=== PATIENT | male | born 2000 | race Caucasian/White ===

== ENCOUNTER 2025-03-18 06:54 | Emergency (ER) | payer OTHER, SELFPAY ==
[2025-03-18 06:55] VITALS: BP 147/82; PULSE 88; RESP 17; TEMP 36.6; O2SAT 100; BMI 25.0
--- NOTE | 2025-03-18 07:04 | RAD_ITS ---
PROCEDURE: CHEST PA AND LATERAL 03/18/2025 REASON FOR EXAM: CHEST PAIN TECHNIQUE: Procedure Code: RADCXR Modality: DX Procedure: CHEST PA AND LATERAL COMPARISON: None FINDINGS: Hardware: EKG leads Heart: Normal Mediastinum: Normal Lungs: The lungs are clear. Bones: Minimal curvature thoracolumbar spine centered at T11 directed to the left. This may be positional or related to spasm. RAD/Chest PA and Lateral IMPRESSION: No acute cardiopulmonary process Reading Location: [id number]
--- NOTE | 2025-03-18 07:04 | EKG12_ITS ---
Test Reason : CP Blood Pressure : */* mmHG Vent. Rate : 86 BPM Atrial Rate : 86 BPM P-R Int : 162 ms QRS Dur : 94 ms QT Int : 336 ms P-R-T Axes : 59 91 40 degrees QTcB Int : 402 ms Normal sinus rhythm otherwise normal, st elevation Confirmed by Hernandez Becerril ([id number]), editor at large JULIO BARRAGAN ([id number]) on 03/20/2025 8:37:13 AM Referred By: Confirmed By: Hernandez Becerril
--- NOTE | 2025-03-18 07:15 | ED.VIS.CHEST ---
HPI History of Present Illness Chief Complaint: Chest Pain Narrative Narrative: Chief complaint and HPI: 25-year-old male with past medical history of intermittent vaping and marijuana use presents for evaluation of right-sided chest pain. Onset 2 days ago. States prior to this he had been working out however denies any strenuous physical activity for the past week. Pain is worse with movement and inspiration. Certain positions help the pain disappear. He denies any fever, chills, shortness of breath, abdominal pain, nausea, vomiting, URI symptoms, rash. Patient states he recently traveled out of state. Review of systems: See HPI Medications: As listed on the chart Allergies: As listed on the chart PFSH: Per chart Vital signs: As listed on the chart. Reviewed. Physical exam: Gen: A&O x3, NAD Head: Normocephalic, atraumatic Eyes: No sclera icterus, conjunctiva clear ENT: Moist mucous membranes Neck: Trachea midline, No JVD CV: RRR, no murmurs, no peripheral edema, chest pain nonreproducible with palpation Resp: Lungs CTA BL, no w/r/c GI: Abd soft, non-distended, non-tender, no r/r/g Musc: Full ROM, no deformity Skin: Warm, dry, without rash Psych: Cooperative, appropriate mood and affect [facility] Medical History (Updated 03/18/25 @ 06:56 by Susanna Ruiz) ADD (attention deficit disorder) Home Medications ?Medication ?Instructions ?Recorded ?Last Taken ?Type NK 03/18/25 Unknown History Allergy/AdvReac Type Severity Reaction Status Date / Time peanut (peanuts) Allergy Anaphylaxis Verified 03/18/25 06:58 Social History Smoking Status: Light Smoker (<10/day) EXAM Physical Exam Const Vital Signs: 03/18/25 06:55 03/18/25 06:55 03/18/25 07:56 Temperature 97.9 F Temperature Source Oral Pulse Rate 88 92 Respiratory Rate 17 14 Respiratory Effort Normal Non-Labored Blood Pressure 147/82 H 113/59 L Blood Pressure Mean 103 77 Pulse Ox 100 100 Oxygen Delivery Method Room Air Room Air 03/18/25 09:04 Temperature Temperature Source Pulse Rate 78 Respiratory Rate 16 Respiratory Effort Blood Pressure 118/76 Blood Pressure Mean 90 Pulse Ox 100 Oxygen Delivery Method Room Air MDM MDM MDM Narrative Medical decision making narrative: 25-year-old male with past medical history of intermittent vaping and marijuana use presents for evaluation of right-sided chest pain. Onset 2 days ago. Pain is worse with movement and inspiration. Certain positions help the pain disappear. On presentation, patient no acute distress. Mildly hypertensive. Differential diagnosis includes but is not limited to myofascial spasm, costochondritis, pleurisy, arrhythmia, PE, pneumothorax, pneumonia, ACS. Aspirin ordered. Chest pain workup ordered. CBC with leukocytosis of 14.7. No anemia. Platelets unremarkable. D-dimer elevated at 0.58. Cannot rule out PE, CTA chest ordered. BMP relatively unremarkable. Troponin unremarkable x 2. CT chest shows tiny right pleural effusion with right basilar atelectasis and/or early infiltrate. No evidence of PE. Patient's pain is likely secondary to his small right pleural effusion. May be early pneumonia versus early viral illness. Patient and family was updated of all the results. Patient given the option of antibiotics versus observation. He elected for antibiotics. Will treat for possible early pneumonia. Follow-up with primary care physician. Return back to ED symptoms change or worsen. He confirmed understanding. Tylenol Motrin as needed for pain. EKG: Interpreted by me/EM physician: EKG shows normal sinus rhythm with early repolarization. Heart rate 86. Diagnostic: Interpreted by me/EM physician: Chest x-ray without pneumonia, effusion, cardiomegaly, pneumothorax. Radiology in agreement. Per radiology there is minimal curvature of the thoracolumbar spine created at T11 directed to the left. This may be positional related to spasm. Impression: 1. Right small pleural effusion 2. Possible early pneumonia 3. Right-sided chest pain Lab Data Labs: Laboratory Results - last 24 hr 03/18/25 03/18/25 07:12 09:07 WBC 14.7 H RBC 5.53 Hgb 16.2 Hct 48.9 MCV 88.4 MCH 29.3 MCHC 33.1 RDW Std Deviation 41.6 RDW Coeff of Antonette 12.8 Plt Count 261 MPV 9.9 Immature Gran % (Auto) 0.500 Neut % (Auto) 67.8 Lymph % (Auto) 13.7 L [place] % (Auto) 7.5 Eos % (Auto) 9.3 H Baso % (Auto) 1.2 H Absolute Neuts (auto) 10.0 H Absolute Lymphs (auto) 2.02 Nucleated RBC % 0 D-Dimer Quant (PE/DVT) 0.58 H* Sodium 139 Potassium 4.1 Chloride 103 Carbon Dioxide 26.2 Anion Gap 10 BUN 9 Creatinine 1.20 Estim Creat Clear Calc 94.10 Est GFR (MDRD) Non-Af 86 BUN/Creatinine Ratio 7.5 L Glucose 104 H Calcium 9.0 Troponin T High Sens 12 Troponin T Hi Sens 2 Hr 9 Radiography Diagnostic Testing: Clinical Impression(s) from Imaging Studies Chest X-Ray 03/18/25 07:04 IMPRESSION: No acute cardiopulmonary process Reading Location: [facility] Chest CTA 03/18/25 07:32 IMPRESSION: Tiny right pleural effusion with the right basilar atelectasis and/or early infiltrate. No evidence of pulmonary embolism. [facility] T[facility] Chief Complaint: Chest Pain ED Provider: Genaro Hale Dx/Rx/DC Orders Prescriptions: No Action NK Primary Care Provider: Care Physician,No Primary Referrals: Care Physician,No Primary [Primary Care Provider, Medical] Print Language: [place] Citizen
[2025-03-18 07:18] LABS: Hematocrit 48.9 % (40-54); Hemoglobin 16.2 g/dL (13.0-16.5); Immature Granulocytes Count 0.070 X10^3/uL (0.0-0.0); Mean Corp Hgb Conc 33.1 g/dL (32-36); Mean Corpuscular Volume 88.4 fL (80-94); Mean Platelet Vol. 9.9 fl (6.2-12.0); NRBC Flagged by Analyzer 0 % (0-5); Platelet Count 261 K/mm3 (150-450); RBC Distribution Width CV 12.8 % (11.6-14.6); RBC Distribution Width SD 41.6 fl (35.1-43.9); Red Blood Count 5.53 M/mm3 (4.6-6.2); White Blood Count 14.7 K/mm3 (4.4-11.0)
--- OUTSIDE RECORDS SUMMARY | 2025-03-18 07:26 | XMS RPT_ITS | CCD ---
Author Organization [facility] Care Team Providers Care Group Art Supervisor Name Role Phone Bunny Angel Unavailable Unavailable DARYA CURRY Unavailable Unavailable DARYA CURRY Unavailable Unavailable Darya Curry Unavailable Unavailable Darya Curry Unavailable Unavailable CHARANJIT KELLER Attending Unavailable Allergies Allergy Classification Reported Allergen(s) Allergy Type Date of Onset Reaction(s) Facility (2 sources) bee pollen Allergy to substance (finding) [facility] Work Phone: (2 sources) peanut Allergy to substance (finding) [facility] Work Phone: Medications Completed/Discontinued Medications Medication Drug Class(es) Dates Sig (Normalized) Sig (Original) 24 hr dexmethylphenidate hydrochloride 15 mg extended release oral capsule (2 sources) Central Nervous System Stimulant Start: 9 take 1 capsule by mouth once daily Dexmethylphenidate HCl ER 15 MG Oral Capsule Extended Release 24 Hour TAKE 1 CAPSULE Daily Quantity: 90 Refills: 0 Patricio ALMAZAN, PhD, Darya Start : 10-Jan-2019 Active [id number] 0.3 ml EPINEPHrine 1 mg/ml auto-injector (4 sources) alpha-Adrenergic Agonist, beta-Adrenergic Agonist, Catecholamine Start: 8 Auvi-Q 0.3 MG/0.3ML Injection Solution Auto-injector Inject with Auvi-Q autoinjector for signs of severe allergic reaction. Repeat with second injectio if no improvement within 10 min of first. Quantity: 1 Refills: 2 Patricio ALMAZAN, PhD, Darya Start : 28-Apr-2017 Active 2 Solution Auto-injector Pen Start: 04-23-2015 EpiPen 2-Dago 0 .3 MG/0.3ML Injection Solution Auto-injector Inject with autoinjector syringe for severe allergic reaction. May repeat with second syringe if no improvement after first injection. Quantity: 2 Refills: 1 Patricio ALMAZAN, , Darya Start : 23-Apr-2015 Active 2 Solution Auto-injector Pen 24 hr guanFACINE 1 mg extended release oral tablet (2 sources) Central alpha-2 Adrenergic Agonist Start: 06-14-2019 take 1 tablet by mouth twice daily guanFACINE HCl ER 1 MG Oral Tablet Extended Release 24 Hour Take 1 tablet twice daily Quantity: 180 Refills: 1 Patricio ALMAZAN PhD, Darya Start : 14-Jun-2019 Active hydrOXYzine hydrochloride 25 mg oral tablet (2 sources) Antihistamine Start: 07-25-2019 take 1 tablet by mouth every six hours hydrOXYzine HCl - 25 MG Oral Tablet TAKE 1 TABLET Every 6 hours PRN as needed for anxiety. Quantity: 35 Refills: 5 Patricio ALMAZAN PhD, Darya Start : 25-Jul-2019 Active Start: 07-25-2019 take 1 tablet by becca th every six hours hydrOXYzine HCl - 25 MG Oral Tablet TAKE 1 TABLET Every 6 hours PRN as needed for anxiety. 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 disorder)] Chronic Cardiac dysrhythmias (2 sources) Palpitations; Translations: [Palpitations] Onset: 04-13-2022 Episodic Liveborn (2 sources) Term infant; Translations: [History of Full-term ] Episodic Other acquired deformities (2 sources) Deformity of chest wall; 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 Other congenital anomalies (2 sources) Pectus carinatum; Translations: [Pectus carinatum] Chronic Other injuries and conditions due to external causes (2 sources) Injury of wrist; Translations: [History of Wrist fracture, left] Episodic Other lower respiratory disease (2 sources) Cough; Translations: [History of Cough] Episodic Superficial injury; contusion (1 source) Contusion of left upper arm, initial encounter; Translations: [Contusion of left upper arm, initial encounter] Onset: 01-03-2018 Episodic Unclassified (1 source) Unknown / UNK(Unknown) Onset: 01-03-2018 Past or Other Problems Problem Classification Problem Date Documented Da te Episodic/Chronic Unclassified (1 source) Contusion of left upper arm, initial encounter Onset: 01-03-2018 Unclassified (2 sources) Patient encounter status; Translations: [Encounter for routine child health examination] NEGATED: Highlighted row has not occurred!Residual codes; unclassified (15 sources) Disease Episodic Results Test Name Value Interpretation Reference Range Facility ECG 12-LEADon 04-14-2022 ECG 12-LEAD IMPRESSION: Sinus rhythm Borderline right axis deviation Electronically Signed On 04-14-2022 8:13:39 EST by Alanna Nelson [facility] ED Nursing Noteon 04-13-2022 ED Nursing Note Pt is aware of palpitations he's had in the past. Came in today when he noticed them again. Said he did have an energy drink at 1700 to day, smoked some weed and cigarette(s). The chest pain was sternal and only for a brief time. No CP now. No SOB. [facility] ED Nursing Note Bed: 40 Expected date: Expected time: Means of arrival: Comments: Triage: Palpitations Tona Cagle RN 04/13/22 0425 [facility] ED Provider Noteon 2 ED Provider Note [facility] EMERGENCY DEPT EMERGENCY DEPARTMENT ENCOUNTER Pt Name: Madi Wan Birthdate 2000 Date of evaluation: 04/13/2022 Provider: Nadine Lee MD CHIEF COMPLAINT Chief Complaint Patient presents with Palpitations Pt stated he has palpitations that started around 11pm. Pt admits to drinking energy drink, smoking marijuana, and smoking nicotine tonight. Pt stated he has experienced this before but not this bad. Chest Pain Pt stated he is having chest discomfort. HISTORY OF PRESENT ILLNESS (Location/Symptom, Timing/Onset, Context/Setting, Quality, Duration, Modifying Factors, Severity) Note limiting factors. HPI Madi Wan is a 22 y.o. male who presents to the emergency department for palpitations. Patient states that his palpitations began at approximately 12:30 AM. He states that he smoked marijuana around 1700 on 04/12/2022. At approximately 2300 on 04/12/2022, patient states that he smokes marijuana and had a small glass of wine. Endorses discomfort and shortness of breath associated with the palpitations, but denies any chest pain, lightheadedness, nausea/vomiting. Denies any other alcohol or drug use. Patient states that this has been occurring ever since he had COVID approximately a year and a half ago where he notices it more when he drinks energy drinks. Denies any history of cardiac disease or family history of cardiac disease. Denies any recent immobilization, recent travel, or blood clots. Patient states that he does have a history of anxiety and has been anxious lately, but he came in tonight because these palpitations were more persistent than his baseline. Nursing Notes were reviewed. REVIEW OF SYSTEMS (2+ for level 4; 10+ for level 5) Review of Systems Constitutional: Negative for chills and fever. HENT: Negative for congestion and sore throat. Eyes: Negative for pain and visual disturbance. Respiratory: Negative for cough, chest tightness and shortness of breath. Cardiovascular: Positive for palpitations. Negative for chest pain. Gastrointestinal: Negative for abdominal pain and vomiting. Genitourinary: Positive for dysuria. Musculoskeletal: Negative for arthralgias and back pain. Skin: Negative for color change and rash. Neurological: Negative for dizziness, seizures, syncope and light-headedness. Psychiatric/Behavioral: Negative for agitation. The patient is nervous/anxious. All other systems reviewed and are negative. PAST MEDICAL HISTORY History reviewed. No pertinent past medical history. SURGICAL HISTORY History reviewed. No pertinent surgical history. CURRENT MEDICATIONS Previous Medications No medications on file ALLERGIES Patient has no known allergies. FAMILY HISTORY No family history on file. SOCIAL HISTORY Social History Socioeconomic History Marital status: Single SCREENINGS PHYSICAL EXAM (up to 7 for level 4, 8 or more for level 5) Physical Exam Vitals and nursing note reviewed. Constitutional: General: He is not in acute distress. Appearance: He is well-developed. HENT: Head: Normocephalic and atraumatic. Eyes: Conjunctiva/sclera: Conjunctivae normal. Cardiovascular: Rate and Rhythm: Regular rhythm. Tachycardia present. Heart sounds: No murmur heard. Pulmonary: Effort: Pulmonary effort is normal. No respiratory distress. Breath sounds: Normal breath sounds. Abdominal: Palpations: Abdomen is soft. Tenderness: There is no abdominal tenderness. Musculoskeletal: General: No swelling. Cervical back: Neck supple. Right lower leg: No edema. Left lower leg: No edema. Skin: General: Skin is warm and dry. Capillary Refill: Capillary refill takes less than 2 seconds. Neurological: Mental Status: He is alert. Psychiatric: Attention and Perception: Attention and perception normal. Mood and Affect: Affect normal. Mood is anxious. Speech: Speech normal. Behavior: Behavior normal. Behavior is cooperative. Thought Content: Thought content normal. Cognition and Memory: Cognition and memory normal. Judgment: Judgment normal. DIAGNOSTIC RESULTS EKG (Per Emergency Physician): Please see epiphany interpretation if EKG performed RADIOLOGY (Per Emergency Physician): ECG 12 lead Result Date: 04/13/2022 Sinus rhythm Borderline right axis deviation ED BEDSIDE ULTRASOUND: Performed by ED Physician - none LABS: Labs Reviewed COMPREHENSIVE METABOLIC PANEL - Abnormal Result Value SODIUM 141 POTASSIUM 3.6 CHLORIDE 107 CARBON DIOXIDE 26 ANION GAP 8 UREA NITROGEN 9 CREATININE 0.96 GLUCOSE 109 (*) CALCIUM 10.2 AST (SGOT) 33 ALT 26 ALKALINE PHOSPHATASE 84 ALBUMIN 5.1 (*) BILIRUBIN, TOTAL 0.6 TOTAL PROTEIN 8.0 eGFR >90.0 D-DIMER,QUANTITATIVE - Normal D-DIMER, INNOVANCE <0.19 Narrative: Innovance D-Dimer values of <0.50 mg/L FEU can be used in combination with a pre-test probability model (e.g. Well's) to exclude pulmonary embol (more content not included)... Normal [facility] ED Provider Note Emergency Department Encounter [facility] EMERGENCY DEPT Patient: Madi Wan : 2000 Date of Evaluation: 04/13/2022 ED Supervising Physician: Charanjit Keller DO I independently examined and evaluated Madi Wan. This will serve as my Supervisory note as the clinical neuropsychologist of record and shared attestation. I did perform a substantive portion of the visit including all aspects of the Medical Decision Making. I wore appropriate PPE for the entirety of this encounter. In brief, Madi Wan is a 22 y.o. male that presents to the emergency departmentfor palpitations. Patient reports palpitations began at 11 PM. Reports that he had smoked marijuana and drank a Monster and a Mountain Dew prior to palpitations beginning. Patient states that with the palpitations he felt discomfort, however denies chest pain. Patient denies shortness of breath, lightheadedness, nausea/vomiting. Denies any other drug or alcohol use. Patient reports that this has been occurring intermittently over the past 2 years when he drinks energy drinks. Patient denies family history of cardiac disease. Patient denies tobacco use. Denies lower extremity swelling, recent travel, or history of blood clots. Patient reports that he feels very anxious lately. Focused exam: Gen: NAD HEENT: Head atraumatic. Eyes no discharge, nonicteric and non injected Neck: supple Heart: Tachycardic, regular rhythm, no murmur Lungs: CTA Abd: soft, non distended and no tenderness to palpation Extremities: 2+ radial and DP. Cap refill normal. No edema. Full range of motion of all 4 extremities Neuro: A&Ox3. Strength 5/5 in bilateral UE and LE bilaterally. Sensation to light touch intact in bilateral UE and LE. Skin: no rash or lesions to exposed skin Psych: Anxious affect Brief ED course/MDM: 22 y.o. male that presents to the emergency departmentfor palpitations. Upon arrival to the ED, patient tachycardic in 110s, but otherwise hemodynamically stable, afebrile, and saturating well on room air. Patient with anxious affect. EKG with normal sinus rhythm with right axis deviation present and mild ST depression in lead III and aVF. No priors for comparison. Patient denies sudden cardiac history in the family. Patient denies any risk factors for pulmonary embolism or blood clots, thus comfortable obtaining D-dimer to further rule out pulmonary embolism. D-dimer negative. Troponin normal. No significant electrolyte abnormality. Patient given normal saline bolus and 0.5 mg p.o. Ativan given anxiety. Suspect palpitations likely in setting of Multiple energy drinks and marijuana use. Upon reevaluation, tachycardia resolved, patient feels comfortable following up as outpatient. Patient instructed to follow-up with cardiology given EKG changes. patient medically safe for discharge. Return precautions given. Patient agreeable to understandsthe plan. All diagnostic, treatment, and disposition decisions were made by myself in conjunction with the Resident. I also supervised frye portions of any procedures performed by the Resident. For all further details of the patient's emergency department visit, please see their documentation. (Comment: Please note this report has been produced using speech recognition software and may contain errors related to that system including errors in grammar, punctuation, and spelling, as well as words and phrases that may be inappropriate. If there are any questions or concerns please feel free to contact the dictating provider for clarification.) Charanjit Keller, DO [employer] Charanjit Keller, DO 04/13/22 0652 [facility] OPIATE/OPIOID/BENZO EXTENDED PRESCRIPTION COMPLIANCEon 10-09-2020 CODEINE <50 Normal Cutoff <50 [facility] Comment on above: Performed By: #### D SBOP #### [facility] [address] [place] [id number] EDDP,U <25 Normal Cutoff <25 [facility] Comment on above: Result Comment: The performance characteristics of the Methadone Confirmation, Urine has been validated by the individual laboratory site where testing is performed. It has not been cleared or approved by the FDA. However the FDA has determined that such clearance or approval is not necessary. Our Laboratory is certified under the Clinical Laboratory Improvement Amendments of 1988 (CLIA) as qualified to perform high complexity clinical laboratory testing. Performed By: #### D SBOP #### [facility] [address] [place] [address] FENTANYL CONFIRM,U <2.5 Normal Cutoff<2.5 [facility] Comment on above: Performed By: #### D SBOP #### [facility] [address] [place] [address] HYDROCODONE <25 Normal Cutoff <25 [facility] Comment on above: Performed By: #### D SBOP #### [facility] [address] [place] [address] METHADONE,U <25 Normal Cutoff <25 [facility] Comment on above: Performed By: #### D SBOP #### [facility] [address] [place] [address] NORFENTANYL CONFIRM,U <2.5 Normal Cutoff<2.5 [facility] Comment on above: Result Comment: The performance characteristics of the Fentanyl Confirmation, Urine has been validated by the individual laboratory site where testing is performed. It has not been cleared or approved by the FDA. However the FDA has determined that such clearance or approval is not necessary. Our Laboratory is certified under the Clinical Laboratory Improvement Amendments of 1988 (CLIA) as qualified to perform high complexity clinical laboratory testing. Performed By: #### D SBOP #### [facility] [address] [place] [address] O-DESMETHYLTRAMADOL ,U <50 Normal Cutoff <50 [facility] Comment on above: Result Comment: The performance characteristics of the Tramadol Confirmation, Urine has been validated by the individual laboratory site where testing is performed. It has not been cleared or approved by the FDA. However the FDA has determined that such clearance or approval is not necessary. Our Laboratory is certified under the Clinical Laboratory Improvement Amendments of 1988 (CLIA) as qualified to perform high complexity clinical laboratory testing. Performed By: #### D SBOP #### [facility] [address] [place] [address] OXYMORPHONE <25 Normal Cutoff <25 [facility] Comment on above: Result Comment: The performance characteristics of the Opiate Confirmation, Urine has been validated by the individual laboratory site where testing is performed. It has not been cleared or approved by the FDA. However the FDA has determined that such clearance or approval is not necessary. Our Laboratory is certified under the Clinical Laboratory Improvement Amendments of 1988 (CLIA) as qualified to perform high complexity clinical laboratory testing. Performed By: #### D SBOP #### [facility] [address] [place] [address] TRAMADOL CONFIRM,U <50 Normal Cutoff <50 [facility] Comment on above: Performed By: #### D SBOP #### [facility] [address] [place] [address] ZOLPIDEM METABOLITE[ZCA] ,U <25 Normal Cutoff <25 [facility] Comment on above: Result Comment: The performance characteristics of the Zolpidem Confirmation, Urine has been validated by the individual laboratory site where testing is performed. It has not been cleared or approved by the FDA. However the FDA has determined that such clearance or approval is not necessary. Our Laboratory is certified under the Clinical Laboratory Improvement Amendments of 1988 (CLIA) as qualified to perform high complexity clinical laboratory testing. Performed By: #### D SBOP #### [facility] [address] [place] [address] ZOLPIDEM,URINE <25 Normal Cutoff <25 [facility] Comment on above: Performed By: #### D SBOP #### [facility] [address] [place] [address] 6-ACETYLMORPHINE <25 Normal Cutoff <25 [facility] Comment on above: Performed By: #### D SBOP #### [facility] [address] [place] [address] 7-AMINOCLONAZEPAM <25 Normal Cutoff <25 [facility] Comment on above: Performed By: #### D SBOP #### [facility] [address] [place] [address] ALPHA-HYDROXYALPRAZ OLAM <25 Normal Cutoff <25 [facility] Comment on above: Performed By: #### D SBOP #### [facility] [address] [place] [address] ALPHA-HYDROXYMIDAZO IRAHETA <25 Normal Cutoff <25 [facility] Comment on above: Performed By: #### D SBOP #### [facility] [address] [place] [address] ALPRAZOLAM <25 Normal Cutoff <25 [facility] Comment on above: Performed By: #### D SBOP #### [facility] [address] [place] [address] CHLORDIAZEPOXIDE <25 Normal Cutoff <25 [facility] Comment on above: Performed By: #### D SBOP #### [facility] [address] [place] [address] CLONAZEPAM <25 Normal Cutoff <25 [facility] Comment on above: Performed By: #### D SBOP #### [facility] [address] [place] [address] DIAZEPAM <25 Normal Cutoff <25 [facility] Comment on above: Performed By: #### D SBOP #### [facility] [address] [place] [address] HYDROMORPHONE <25 Normal Cutoff <25 [facility] Comment on above: Performed By: #### D SBOP #### [facility] [address] [place] [address] LORAZEPAM <25 Normal Cutoff <25 [facility] Comment on above: Performed By: #### D SBOP #### [facility] [address] [place] [address] MIDAZOLAM <25 Normal Cutoff <25 [facility] Comment on above: Performed By: #### D SBOP #### [facility] [address] [place] [address] MORPHINE <50 Normal Cutoff <50 [facility] Comment on above: Performed By: #### D SBOP #### [facility] [address] [place] [address] NORDIAZEPAM <25 Normal Cutoff <25 [facility] Comment on above: Performed By: #### D SBOP #### [facility] [address] [place] [address] NORHYDROCODONE <25 Normal Cutoff <25 [facility] Comment on above: Performed By: #### D SBOP #### [facility] [address] [place] [address] NOROXYCODONE <25 Normal Cutoff <25 [facility] Comment on above: Performed By: #### D SBOP #### [facility] [address] [place] [address] OXAZEPAM <25 Normal Cutoff <25 [facility] Comment on above: Performed By: #### D SBOP #### [facility] [address] [place] [address] OXYCODONE <25 Normal Cutoff <25 [facility] Comment on above: Performed By: #### D SBOP #### [facility] [address] [place] [address] TEMAZEPAM <25 Normal Cutoff <25 [facility] Comment on above: Result Comment: The performance characteristics of the Benzodiazepine Confirmation, Urine has been validated by the individual laboratory site where testing is performed. It has not been cleared or approved by the FDA. However the FDA has determined that such clearance or approval is not necessary. Our Laboratory is certified under the Clinical Laboratory Improvement Amendments of 1988 (CLIA) as qualified to perform high complexity clinical laboratory testing. Performed By: #### D SBOP #### [facility] [address] [place] [address] CANNABINOID CONFIRM.URINEon 10-06-2020 51-FSK-1-CARBOXY-TH C 237 ng/mL Normal [facility] Comment on above: Result Comment: INTE RPRETIVE INFORMATION: THC Metabolite, Urine, Quantitative Methodology: Quantitative Liquid Chromatography-Tandem Mass Spectrometry Positive cutoff: 15 ng/mL For medical purposes only; not valid for forensic use. The drug analyte detected in this assay, 9-carboxy THC, is a metabolite of cqlrr-5-gpwmbayuugxlwumaacpd (THC). Detection of 9-carboxy THC suggests use of, or exposure to, a product containing THC. This test cannot distinguish between prescribed or non-prescribed forms of THC, nor can it distinguish between active or passive use. The 9-carboxy THC metabolite can be detected in urine for several weeks. Normalization of results to creatinine concentration can help document elimination or suggest recent use, when specimens are collected at least one week apart. This test was developed and its performance characteristics determined by [facility]. It has not been cleared or approved by the [place] Food and Drug Administration. This test was performed in a CLIA certified laboratory and is intended for clinical purposes. Performed By: [facility] [address] [place] [address] Ladies Underwear Operator: Kendy Davidson MD Performed By: #### C ANCN #### [facility] [address] [place] [address] METHYLPHENIDATE AND METABOLI TE,CONF,URINEon 10-06-2020 METHYLPHENIDATE,U <10.0 Normal [facility] Comment on above: Result Comment: INTE RPRETIVE INFORMATION: Methylphenidate and Metabolite, Urine Methodology: Quantitative Liquid Chromatography-Tandem Mass Spectrometry Positive Cutoff: Methylphenidate: 10 ng/mL Ritalinic acid: 50 ng/mL For medical purposes only; not valid for forensic use. The absence of expected drug(s) and/or drug metabolite(s) may indicate non-compliance, inappropriate timing of specimen collection relative to drug administration, poor drug absorption, diluted/adulterated urine, or limitations of testing. The concentration value must be greater than or equal to the cutoff to be reported as positive. Interpretive questions should be directed to the laboratory. This test was developed and its performance characteristics determined by [facility]. It has not been cleared or approved by the [place] Food and Drug Administration. This test was performed in a CLIA certified laboratory and is intended for clinical purposes. Performed By: #### M PHNM #### [facility] [address] [place] [address] RITALINIC ACID,U <50.0 Normal [facility] Comment on above: Result Comment: Perf ormed By: [employer] [address] [place] [address] Ladies Underwear Operator: Kendy Davidson MD Performed By: #### M PHNM #### [facility] [address] [facility] [place] [address] OPIATE/OPIOID/BENZO EXTENDED PRESCRIPTION COMPLIANCEon 10-03-2020 AMPHETAMINE SCREEN,U Negative Normal NEGATIVE [facility] Comment on above: Result Comment: CUTO FF LEVEL: 500 NG/ML Cross-reactivity has been reported with high concentrations of the following drugs: buproprion, chloroquine, chlorpromazine, ephedrine, mephentermine, fenfluramine, phentermine, phenylpropanolamine, pseudoephedrine, and propranolol. Performed By: #### D SBOP #### [facility] [address] [place] [address] BARBITURATES SCREEN,U Negative Normal NEGATIVE [facility] Comment on above: Result Comment: CUTO FF LEVEL: 200 NG/ML Performed By: #### D SBOP #### [facility] [address] [place] [address] CANNABINOIDS SCREEN,U Positive Abnormal NEGATIVE [facility] Comment on above: Result Comment: CUTO FF LEVEL: 50 NG/ML Performed By: #### D SBOP #### [facility] [address] [place] [address] COCAINE METABOLITE SCREEN,U Negative Normal NEGATIVE [facility] Comment on above: Result Comment: CUTO FF LEVEL: 150 NG/ML Performed By: #### D SBOP #### [facility] [address] [place] [address] Creatinine [Mass/Vol] 273.9 mg/dL Normal [facility] Comment on above: Result Comment: A ur ine creatinine result >= 20 mg/dL is considered valid without suspicion of dilution. Samples with results below this range will automatically reflex to specific gravity testing to verify specimen integrity. Performed By: #### D SBOP #### [facility] [address] [place] [address] DRUG SCREEN COMMENT. SEE BELOW Normal [facility] Comment on above: Result Comment: Drug screen results are presumptive and should not be used to assess compliance with prescribed medication. Definitive confirmatory drug testing has been added to this sample for any positive screen result and will be reported separately. . Toxicology screening results are reported qualitatively. The concentration must be greater than or equal to the cutoff to be reported as positive. The concentration at which the screening test can detect an individual drug or metabolite varies. The absence of expected drug(s) and/or drug metabolite(s) may indicate non-compliance, inappropriate timing of specimen collection relative to drug administration, poor drug absorption, diluted/adulterated urine, or limitations of testing. For medical purposes only; not valid for forensic use. . Interpretive questions should be directed to the laboratory medical directors. Performed By: #### D SBOP #### [facility] [address] [place] [address] PCP SCREEN,U Negative Normal NEGATIVE [facility] Comment on above: Result Comment: CUTO FF LEVEL: 25 NG/ML Cross-reactivity has been reported with dextromethorphan. Performed By: #### D SBOP #### [facility] [address] [address] CORONAVIRUS 2019 BY PCRon SARS-CoV-2 (COVID-19) RNA CARISSA+probe Ql (Unsp spec) Not detected Normal Not Detected [facility] Comment on above: Result Comment: . This assay is designed to detect the N, ORF1ab and/or S genes of SARS-CoV-2 via nucleic acid amplification. A Negative (NOT DETECTED) result does not preclude 2019-nCoV infection since the adequacy of sample collection and/or low viral burden may result in presence of viral nucleic acids below the clinical sensitivity of this test method. Negative (NOT DETECTED) result should not be used as the sole basis for treatment or other patient management decisions. Rather negative results should be combined with clinical observations, patient history, and epidemiological information to make patient management decisions. Fact sheet for providers: https://www.fda.gov/media/756282/download Fact sheet for patients: https://www.fda.gov/media/574256/download This test has received FDA Emergency Use Authorization (EUA) and has been verified by [facility] ([facility]). This test is only authorized for the duration of time that circumstances exist to justify the authorization of the emergency use of in vitro diagnostic tests for the detection of SARS-CoV-2 virus and/or diagnosis of COVID-19 infection under section 564(b)(1) of the Act, 21 U.S.C. 360bbb-3(b)(1), unless the authorization is terminated or revoked sooner. [facility] is certified under CLIA-88 as qualified to perform high complexity testing. Testing is performed in the [facility] laboratories located at [address] [place] [address]. Performed By: #### C OV19 #### [place] [address] DATE OF SYMPTOM ONSET [YYYYMMDD]? 20200229 Normal [facility] Comment on above: Performed By: #### C OV19 #### [place] [address] EMPLOYED IN HEALTHCARE? No Normal [facility] Comment on above: Performed By: #### C OV19 #### [place] [address] HOSPITALIZED (OR PLANNED TO BE ADMITTED)? No Normal [facility] Comment on above: Performed By: #### C OV19 #### [place] [address] ICU? No Normal [facility] Comment on above: Performed By: #### C OV19 #### [place] [address] RESIDENT IN CONGREGATE CARE SETTING? No Normal [facility] Comment on above: Performed By: #### C OV19 #### [facility] [address] [address] SARS-CoV-2 (COVID-19) Ab IA Ql Yes Normal [facility] Comment on above: Performed By: #### C OV19 #### [facility] [address] [address] SYMPTOMATIC DEFINED BY CDC? Yes Normal [facility] Comment on above: Performed By: #### C OV19 #### [facility] [address] [address] CORONAVIRUS 2019 BY PCRon Lab Specimen Source Nasal, Nasopharyngeal Normal [facility] Comment on above: Performed By: #### C OV19 #### [facility] [address] [address] Pediatric Medicine 18+on Pediatric Medicine 18+ Diagnoses/Problems Assessed ADD (attention deficit disorder) (314.00) (F98.8) Patient Discussion/Summary GuanFacine ER HCl 1 mg refill order was sent in for patient in addition to his Foclain XR 15. Patient will take 1 tablet twice a day. Patient is good for 1-month. He will return for a medication follow-up in 1-month to determine continuation on prescription. Chief Complaint Chief Complaints Visit For: Other follow up on ADD medication History of Present Illness MADI is here today alone. Associated Symptoms: Patient is a 19 y.o. male presenting today for a follow-up on ADD medication. Patient has been on Focalin XR generic 15 mg. He takes prescription QD in the morning and did not like the lack of appetite and the jittery feeling it gave him. It was also not covering his need for increase focus in college. Patient states that he really likes the GuanFacine ER 1 mg prescription. Patient began taking 1 mg QD and increased dosage to BID on the 2nd week. Patient denies knowing if he prefers the QD or BID dosage as he admits to not following prescription exactly as instructed over the past week. Patient will like to continue on GuanFacine prescription for the next month taking it twice a day without any changes at this time. He denies any anxiety or other side effects. He has been able to focus more, less jittery, eats better and has been sleeping well. The following history was obtained by Madi. Constitutional:Otherwise denies fever, chills, or changes in behavior, sleep, eating, drinking, urine output or bowel movements. Eyes, ENT: Denies eye complaints, ear complaints, nasal congestion, runny nose, or sore throat. Cardio/Resp: Denies chest pain, palpitations, shortness of breath, wheezing, stridor at rest, cough, working hard to breathe or breathing fast. GI/Renal: Denies nausea, vomiting, stomachache, diarrhea, or constipation. Denies dysuria or abnormal urine color or smell. Musculoskeletal/Skin: Denies muscle or joint complaints. Denies skin rash. Neuro/Psych: Denies headache, dizziness, confusion, irritability or fussiness. Endo/heme/lymph: Denies excessive thirst, excessive sweating, bruising, bleeding or swollen glands. 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) Encounter for routine child health examination (V20.2) (Z00.129) Peanut allergy (V15.01) (Z91.010) Pectus carinatum (754.82) (Q67.7) Past Medical History Problems Acute pharyngitis (462) (J02.9) Resolved Date: 20 Jul 2018 History of Cough (786.2) (R05) Resolved Date: 10 Jul 2014 History of Full-term History of Wrist fracture, left (814.00) (S62.102A) Twice - 11 and 13 yrs old Surgical History Problems Denied: History Of Prior Surgery Family History Mother Family history of Seasonal allergies Father Family history of High cholesterol Brother Family history of Seasonal allergies Social History Problems Lives with parents (, shared custody) 1 younger brother Dad;s - 1 rabbit, 1 lizard Mom's 1 dog, cats Never smoker Allergies Medication No Known Drug Allergies Recorded By: Ragini Chung; 01/04/2014 11:30:14 AM NonMedication Peanuts Recorded By: Brittany Magallanes; 07/10/2014 2:36:33 PM Pollen Recorded By: Brittany Magallanes; 07/10/2014 2:36:33 PM Current Meds Medication NameInstruction Auvi-Q 0.3 MG/0.3ML Injection Solution Auto-injectorInject with Auvi-Q autoinjector for signs of severe allergic reaction. Repeat with second injectio if no improvement within 10 min of first. Dexmethylphenidate HCl ER 15 MG Oral Capsule Extended Release 24 HourTAKE 1 CAPSULE Daily EpiPen 2-Dago 0.3 MG/0.3ML Injection Solution Auto-injectorInject with autoinjector syringe for severe allergic reaction. May repeat with second syringe if no improvement after first injection. Vitals Vital Signs Recorded: 14Jun2019 11:23AM Heart Rate60 Kymjzwpv15 Mjdnvetue71 Height5 ft 8.5 in 2-20 Stature Plcmfaarad63 % Kiuftg874.8 lb 2-20 Weight Xlhnmngmqs01 % BMI Qipovqbjew27.35 BMI Ssmvwqmkcq11 % BSA Calculated1.74 Physical Exam Constitutional General appearance: Alert and in no acute distress. Well developed, well nourished. Eyes External Eyes, Conjunctiva and Lids: Normal external exam - Pupils were equal in size, round, reactive to light (PERRL) with normal accommodation and extraocular movements intact (EOMI). Ears, Nose, Mouth, and Throat External inspection of ears and nose: Normal. Otoscopic examination: Abnormal. Injected tonsillar pillars and uvula. Oropharynx: Normal. Pulmonary Respiratory effort: Normal. No respiratory distress. Auscultation of lungs: Clear bilateral breath sounds. Cardiovascular Auscultation of heart: Rate and rhythm were normal, normal S1 and S2, no gallops, no murmurs and no pericardial rub. Carotid pulses were normal with no bruits; the abdominal aorta was normal, pedal pulses normal. Examination of extremities: There was no peripheral edema. Abdomen Abdomen: Normal bowel sounds, soft, non-tender. No abdominal mass palpated. Lymphatic Palpation of Lymph Nodes: Abnormal. Bilateral anterior cervical lymph nodes 0.5 cm in diameter non-tender and mobile. Musculoskeletal Gait and station: Normal gait. Digits and nails: No clubbing or cyanosis of the fingernails. Inspection/palpation of joints, bones, and muscles: No joint swelling. Normal movement of all extremities. Psychiatric Orientation to person, place, and time: Alert and oriented x 3. Mood and affect: Insight and judgment were intact and the affect was normal. Signatures Electronically signed by : Darya Curry MD; Jun 14 2019 1:00PM EST (Author) Normal [facility] Pediatric Medicine 18+on Pediatric Medicine 18+ Diagnoses/Problems Assessed ADD (attention deficit disorder) (314.00) (F98.8) Orders ADD (attention deficit disorder) Start: guanFACINE HCl ER 1 MG Oral Tablet Extended Release 24 Hour; TAKE 1 TABLET Daily For one week and then increase to twice a day for one week and then return to clinic Rx By: Darya Curry; Dispense: 30 Days ; #:30 Tablet; Refill: 0; For: ADD (attention deficit disorder); ANA MARIA = N; Verified Transmission to [facility]; Last Updated By: [employer]; 05/30/2019 3:06:31 PM Patient Discussion/Summary Focalin XR once a day in the morning with Guanfacine 1 mg ER. Increasing Guanfacine prescription gradually was discussed for patient. He will convert to taking the Guanfacine prescription once in the morning to just once a day the first week. The second week patient will take 1 tablet twice a day. Patient was advised to be aware of possible drowsiness. He will maintain follow up in 2 weeks for a follow up on possible progress with prescription. Chief Complaint Chief Complaints Visit For: Other follow up on medication History of Present Illness MADI is here today alone. Associated Symptoms: Patient is a 19 y.o. male presenting today for a follow-up on medication. Patient has been taking Dexmethylphenidate ER 15 mg for his ADHD and he denies that the prescription is working as long as he would like. He complains of having reduced appetite, trouble sleeping, having negative feelings of irritability and grouchiness when it is wearing off. Patient admits to being on Intuniv in the past as well as Adderall. Auvi-Q Patient attends [employer] where he majors in [employer] technology. He failed a class last semester but he is doing much better this semester. He felt that he had some difficulties transitioning to college. I have personally reviewed the OARRS report for this patient on 05/30/2019. I have considered the risks of abuse, dependence, addition and diversion. I have reviewed the controlled substance agreement with patient/caregiver on 05/30/2019. 1 The following history was obtained by Madi. Constitutional:Otherwise denies fever, chills, or changes in behavior, sleep, eating, drinking, urine output or bowel movements. Eyes, ENT: Denies eye complaints, ear complaints, nasal congestion, runny nose, or sore throat. Cardio/Resp: Denies chest pain, palpitations, shortness of breath, wheezing, stridor at rest, cough, working hard to breathe or breathing fast. GI/Renal: Denies nausea, vomiting, stomachache, diarrhea, or constipation. Denies dysuria or abnormal urine color or smell. Musculoskeletal/Skin: Denies muscle or joint complaints. Denies skin rash. Neuro/Psych: Denies headache, dizziness, or confusion. Endo/heme/lymph: Denies excessive thirst, excessive sweating, bruising, bleeding or swollen glands. 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) Encounter for routine child health examination (V20.2) (Z00.129) Peanut allergy (V15.01) (Z91.010) Pectus carinatum (754.82) (Q67.7) Past Medical History Problems Acute pharyngitis (462) (J02.9) Resolved Date: 20 Jul 2018 History of Cough (786.2) (R05) Resolved Date: 10 Jul 2014 History of Full-term History of Wrist fracture, left (814.00) (S62.102A) Twice - 11 and 13 yrs old Surgical History Problems Denied: History Of Prior Surgery Family History Mother Family history of Seasonal allergies Father Family history of High cholesterol Brother Family history of Seasonal allergies Social History Problems Lives with parents (, shared custody) 1 younger brother Dad;s - 1 rabbit, 1 lizard Mom's 1 dog, cats Never smoker Allergies Medication No Known Drug Allergies Recorded By: Ragini Chung; 01/04/2014 11:30:14 AM NonMedication Peanuts Recorded By: Brittany Magallanes; 07/10/2014 2:36:33 PM Pollen Recorded By: Brittany Magallanes; 07/10/2014 2:36:33 PM Current Meds Medication NameInstruction Auvi-Q 0.3 MG/0.3ML Injection Solution Auto-injectorInject with Auvi-Q autoinjector for signs of severe allergic reaction. Repeat with second injectio if no improvement within 10 min of first. Dexmethylphenidate HCl ER 15 MG Oral Capsule Extended Release 24 HourTAKE 1 CAPSULE Daily EpiPen 2-Dago 0.3 MG/0.3ML Injection Solution Auto-injectorInject with autoinjector syringe for severe allergic reaction. May repeat with second syringe if no improvement after first injection. Vitals Vital Signs Recorded: [id number] 02:21PM Heart Rate72 Dlqplqsx076 Ukftqubcf54 Height5 ft 8.5 in 2-20 Stature Uqkqlzaljw30 % Phnhfl012.2 lb 2-20 Weight Yecmmgoxft78 % BMI Mxyjuibdto67.56 BMI Hnffzajylb46 % BSA Calculated1.75 Physical Exam Constitutional General appearance: Alert and in no acute distress. Well developed, well nourished. Eyes External Eyes, Conjunctiva and Lids: Normal external exam - Pupils were equal in size, round, reactive to light (PERRL) with normal accommodation and extraocular movements intact (EOMI). Ears, Nose, Mouth, and Throat External inspection of ears and nose: Normal. Otoscopic examination: Normal. Oropharynx: Normal. Pulmonary Respiratory effort: Normal. No respiratory distress. Auscultation of lungs: Clear bilateral breath sounds. Cardiovascular Auscultation of heart: Rate and rhythm were normal, normal S1 and S2, no gallops, no murmurs and no pericardial rub. Carotid pulses were normal with no bruits; the abdominal aorta was normal, pedal pulses normal. Examination of extremities: There was no peripheral edema. Abdomen Abdomen: Normal bowel sounds, soft, non-tender. No abdominal mass palpated. Lymphatic Palpation of Lymph Nodes: No lymphadenopathy. Psychiatric Orientation to person, place, and time: Alert and oriented x 3. Mood and affect: Insight and judgment were intact and the affect was normal. Attending Note Attendee Role: Supervisor Twisting Department: Pilar Carballo Attestation: Signatures Electronically signed by : Darya Curry MD; May 30 2019 11:29PM EST (Author) Normal [facility] Pediatric Medicine 18+on Pediatric Medicine 18+ Chief Complaint C/o recent increase in anxiety. Depression Screen and Scarred forms given to patient and dad History of Present Illness MADI WAN presents with complaints of anxiety. Associated symptoms include excessive worry, panic attacks, sweaty palms, diaphoresis, heart palpitations, racing heart and shortness of breath, but no difficulty concentrating, no fatigue, no insomnia, no irritability, no muscle tension, no nervousness, no sleep disruption, no chest pain, no choking sensation, no dizziness, no fainting, no flushing, no gastrointestinal complaints, no headaches, no hyperventilation, no muscle pain, no muscle spasms, no paresthesia, no sighing respiration and no tremors. MADI is accompanied today by his father. General symptoms include: no fever, no fatigue, no chills, no excessive sweating, normal appetite, normal hydration, normal sleep patterns, normal behavior/activity and normal mental status. Associated Symptoms: Madi has a history of ADHD and was stable on Focalin XR 15 mg. He is a senior in high school. Around 3 months ago he stopped taking his Focalin, but now he will take it occasionally when he needs to study for tests or take a test. He feels that he does not need the Focalin XR 15 on a daily basis. He feels that he has had mild anxiety for quite a long time but it usually does not cause him a problem. He sort of had a panic attack while driving to [place] 2 weeks ago. He was thinking about regarding himself and his loved ones. He became overwhelmed and had palpitations. He was having some difficulty breathing. He did drink an energy drink for the drive and he usually does not do that. When he returned home he was concerned about that episode and wanted to be evaluated for anxiety. 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) Encounter for routine child health examination (V20.2) (Z00.129) Peanut allergy (V15.01) (Z91.010) Pectus carinatum (754.82) (Q67.7) Past Medical History Acute pharyngitis (462) (J02.9) History of Cough (786.2) (R05) History of Full-term History of Wrist fracture, left (814.00) (S62.102A) Twice - 11 and 13 yrs old Surgical History Denied: History Of Prior Surgery Family History Mother Family history of Seasonal allergies Father Family history of High cholesterol Brother Family history of Seasonal allergies Social History Lives with parents (, shared custody) 1 younger brother Dad;s - 1 rabbit, 1 lizard Mom's 1 dog, cats Never smoker Allergies No Known Drug Allergies Recorded By: Ragini Chung; 01/04/2014 11:30:14 AM Peanuts Recorded By: Brittany Magallanes; 07/10/2014 2:36:33 PM Pollen Recorded By: Brittany Magallanes; 07/10/2014 2:36:33 PM Current Meds Auvi-Q 0.3 MG/0.3ML Injection Solution Auto-injector; Inject with Auvi-Q autoinjector for signs of severe allergic reaction. Repeat with second injectio if no improvement within 10 min of first; Therapy: 28Apr2017 to (Last Rx:28Apr2017) Requested for: 28Apr2017 Ordered Rx By: Darya Curry; Dispense: 0 Days ; #:1 X 2 Solution Auto-injector Pen; Refill: 2;For: Peanut allergy; ANA MARIA = N; Verified Transmission to [facility] [facility]; Last Updated By: [employer]; 04/28/2017 3:47:27 PM EpiPen 2-Dago 0.3 MG/0.3ML Injection Solution Auto-injector; Inject with autoinjector syringe for severe allergic reaction. May repeat with second syringe if no improvement after first injection; Therapy: 23Apr2015 to (Last Rx:23Apr2015) Requested for: 23Apr2015 Ordered Rx By: Darya Curry; Dispense: 0 Days ; #:2 X 2 Solution Auto-injector Pen; Refill: 1;For: Peanut allergy; ANA MARIA = N; Verified Transmission to [facility]; Last Updated By: [employer]; 04/23/2015 3:44:32 PM Vitals Vital Signs Recorded: 16Aug2018 03:16PM Heart Rate84 Crnrpghn872 Lzwuulsko09 Height5 ft 8.5 in 2-20 Stature Gbwvezlxwv82 % Odqpnk30.7 kg 2-20 Weight Lqkmstgxcf81 % BMI Cabprevedl25.39 BMI Mqnhyczirx67 % BSA Calculated1.71 Physical Exam A convenience store manager was offered to the patient for the physical exam. Dad was present for the exam. Constitutional - Well developed, well nourished, well hydrated and no acute distress. Head and Face - Normocephalic, atraumatic. Eyes - Conjunctiva and lids normal. Ears, Nose, Mouth, and Throat - No nasal discharge. External without deformities. TM's normal color, normal landmarks, no fluid, non-retracted. External auditory canals without swelling, redness or tenderness. Pharyngeal mucosa normal. No erythema, exudate, or lesions. Mucous membranes moist. Neck - Full range of motion. No significant adenopathy. Pulmonary - No grunting, flaring or retractions. No rales or wheezing. Good air exchange. Cardiovascular - Regular rate and rhythm. No significant murmur. Lymphatic - No significant cervical adenopathy. Procedure I gave Madi and dad scared surveys and Madi this CESDC as well as the PHQ9. This score on the CSFDC was 2, this is negative for depression. The severity measure for depression age 11-17, PHQ- 9 modified for adolescence result is 0. On the scared testing he tested negative for every domain with a total score of 11. His dad scored him at borderline panic disorder, and positive for social anxiety disorder, with a total score of 27 consistent with anxiety disorder. Talking to dad further, he feels that Madi is more of an introvert with others. Madi did not agree with this assessment. Diagnoses/Problems ADD (attention deficit disorder) (314.00) (F98.8) Anxiety (300.00) (F41.9) Patient Discussion/Summary I do not think he has long-standing anxiety. I think he no longer is using his ADHD medication and he has a history of ADHD. I think he has situational anxiety for testing and when he intakes too much caffeine. Since he is planning to live on campus at [facility] in the fall, I would strongly suggest that he find a counselor now that he has rapport with. This way if he needs someone to help him if he gets overwhelmed, needs help with organizational strategies or strategies to help with anxiety during tests, he will have a relationship with someone. I recommend that he find someone who also has an office in [place] as well as [place]. Signatures Electronically signed by : Darya Curry MD; Aug 16 2018 8:57PM EST (Author) [facility] 18+on Pediatric Medicine 18+ Chief Complaint sore throat started yesterday History of Present Illness The patient presents with an acute problem for sore throat. Associated Symptoms: Has developed a sore throat since Tuesday. There has been no fever or other systemic symptoms. Has complained of some right sided neck pain. No vomiting or diarrhea. No cough, congestion, or rhinorrhea. No headache. Good fluid intake with normal number of voids. His mother had strep throat last week. 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) Encounter for routine child health examination (V20.2) (Z00.129) Peanut allergy (V15.01) (Z91.010) Pectus carinatum (754.82) (Q67.7) Past Medical History History of Cough (786.2) (R05) History of Full-term History of Wrist fracture, left (814.00) (S62.102A) Twice - 11 and 13 yrs old Surgical History Denied: History Of Prior Surgery Family History Mother Family history of Seasonal allergies Father Family history of High cholesterol Brother Family history of Seasonal allergies Social History Lives with parents (, shared custody) 1 younger brother Dad;s - 1 rabbit, 1 lizard Mom's 1 dog, cats Never smoker Allergies No Known Drug Allergies Recorded By: Ragini Chung; 01/04/2014 11:30:14 AM Peanuts Recorded By: Brittany Magallanes; 07/10/2014 2:36:33 PM Pollen Recorded By: Brittany Magallanes; 07/10/2014 2:36:33 PM Current Meds Auvi-Q 0.3 MG/0.3ML Injection Solution Auto-injector; Inject with Auvi-Q autoinjector for signs of severe allergic reaction. Repeat with second injectio if no improvement within 10 min of first; Therapy: 28Apr2017 to (Last Rx:28Apr2017) Requested for: 28Apr2017 Ordered Rx By: Darya Curry; Dispense: 0 Days ; #:1 X 2 Solution Auto-injector Pen; Refill: 2;For: Peanut allergy; ANA MARIA = N; Verified Transmission to [facility]; Last Updated By: [employer]; 04/28/2017 3:47:27 PM EpiPen 2-Dago 0.3 MG/0.3ML Injection Solution Auto-injector; Inject with autoinjector syringe for severe allergic reaction. May repeat with second syringe if no improvement after first injection; Therapy: 23Apr2015 to (Last Rx:23Apr2015) Requested for: 23Apr2015 Ordered Rx By: Darya Curry; Dispense: 0 Days ; #:2 X 2 Solution Auto-injector Pen; Refill: 1;For: Peanut allergy; ANA MARIA = N; Verified Transmission to [facility]; Last Updated By: [employer]; 04/23/2015 3:44:32 PM Vitals Vital Signs Recorded: 10Jul2018 11:09AM Simlaudosny32.8 F Xxwsqc202 lb 2-20 Weight Jlakiualab70 % Physical Exam Constitutional - Well developed, well nourished, well hydrated and no acute distress. Eyes - Conjunctiva and lids normal. Ears, Nose, Mouth, and Throat - No nasal discharge. External without deformities. TM's normal color, normal landmarks, no fluid, non-retracted. External auditory canals without swelling, redness or tenderness. Oropharynx: Abnormal. (slightly red ). Neck - Full range of motion. No significant adenopathy. Pulmonary - No grunting, flaring or retractions. No rales or wheezing. Good air exchange. Cardiovascular - Regular rate and rhythm. No significant murmur. Diagnoses/Problems Acute pharyngitis (462) (J02.9) Orders Acute pharyngitis Cult, Beta Strep Group A; Specimen Source:Throat; Status:Active; Requested for:10Jul2018; Perform:Lab Services - Lab To Draw (Non-Blood Test); Due:08Oct2018;Ordered; For:Acute pharyngitis; Ordered By:Arturo Barcenas; Patient Discussion/Summary Will call with lab results when available. Encourage rest and fluids. Tylenol (Acetaminophen) and/or Motrin (Ibuprofen, Advil) may be given as needed for pain relief or fever. Call if not improving in 2-3 days. Gargling with warm salt water may be helpful. Signatures Electronically signed by : Arturo Barcenas MD; Jul 10 2018 11:24AM EST (Author) [facility] ED NOTEon 01-03-2018 ED NOTE HNO ID: [id number] thor: Abdoul HeRn) KARLENE Castilloervice: Emergency MedicineAuthor Type: Registered NurseType: ED NotesFiled: 01/03/2018 12:01 PMNote Text: Patient discharged to home. Patient verbalized understanding ofdischarge instructions, no voiced questions or concerns. Patient leavingin no distress. Safety maintained. Patient states they are leaving theED with all the belongings they came with. [facility] ED NOTE HNO ID: [id number] Author: Irene (Rn) ABRAM Armenta Service: Emergency Medicine Author Type: Registered Nurse Type: ED Notes Filed: 01/03/2018 11:09 AM Note Text: Xray aware need for films. [facility] ED NOTE HNO ID: [id number] Author: Brittany (Rn) ABRAM Perez Service: Emergency Medicine Author Type: Registered Nurse Type: ED Notes Filed: 01/03/2018 11:03 AM Note Text: No visible deformity [facility] ED PROV NOTEon 01-03-2018 Protein mass conc HNO ID: [id number] thor: Malou Hendrickson) MELVA Merchantervice: Emergency MedicineAuthor Type: Physician AssistantType: ED Provider NotesFiled: 01/03/2018 11:57 AMNote Text:ED Provider NotePatient Name: Madi WanMRN: [id number] DATE: 01/03/18HistoryPatient presents with:Fall: fell playing soccer last pm has pain upper left arm some limittationROM due to pain no visible [id number] male presents to the ED with complaints of left lateral upperarm pain after soccer last night. Patient reports he fell directly on tothe left arm. Has been icing and taking ibuprofen, continues with pain,states that most of his pain is when he is doing actions such as pushinghimself off of a chair or bed, turning the steering wheel and the car andother similar motions. He denies any clavicular tenderness, no loss ofrange of motion, no deformity. He denies any bruising, wounds. Mom ispresent in the room and does not add to the history.PAST MEDICAL HISTORYDiagnosis Date- Attention deficit hyperactivity disorderNo past surgical history on file.No family history on file.Social HistorySocial History Main Topics- Smoking status: Never Smoker- Smokeless tobacco: Never Used- Alcohol use No- Drug use: No- Sexual activity: Not on fileALLERGIESNo Known AllergiesReview of SystemsAll other systems reviewed and are negative.Physical ExamPulse 100 Temp (Src) 98.2 (Temporal Artery) Resp 16 Ht 5' 8 (1.73m) Wt 125 lb (56.7kg) SpO2 98% BMI 19.01 kg/(m2).Physical ExamConstitutional: He is oriented to person, place, and time. He appearswell-developed and well-nourished.HENT:Head: Normocephalic and atraumatic.Eyes: Conjunctivae are normal.Neck: Normal range of motion. Neck supple.Cardiovascular: Normal rate, regular rhythm and normal heart sounds.Pulmonary/Chest: Effort normal and breath sounds normal.Musculoskeletal:FRO M of bilateral UE. Full strength- able to anteflex and hold againstresistance. Able to internally and externally rotate without difficulty,patient poin ts to deltoid as area of pain, no pain with palpation. Nopain with palpation of clavicle, AC joint. No deformities, distal pulsesintact.Neurological: He is alert and oriented to person, place, and time.Skin: Skin is warm and dry.Psychiatric: He has a normal mood and affect. His behavior is normal.Judgment and thought content normal.Diagnostic TestingED Labs Ordered and Reviewed - No data to displayEXAM TITLE: HUMERUS 2V AP/LAT LEFT?DATE: 01/03/2018 11:29?INDICATION: ?Left arm pain secondary to a fall?COMPARISON: None.?FINDINGS: There is no fracture or dislocation. ?Joint spaces aremaintained andsoft tissues are normal.?IMPRESSION:?Within normal limitsProceduresED Course / Clinical ImpressionClinical Impressions as of Jan 03 1157Arm contusion, left, initial encounterMDM / Disposition / Plan 17-year-old male presents to the ED with left lateral upper arm pain.Patient states that he fell directly on the arm playing soccer last night. X-ray reveals no acute abnormalities. Patient diagnosis is contusion,potentially the patient has deltoid strain as well, discussed ice,ibuprofen and follow-up with ob/gyn doctor. Patient and mom verbalizedunderstanding and all questions answered prior to discharge.SIGNATURE: QAMAR Hurtado-CMargit (Qamar-Mikey) QAMAR Merchant01/03/18 1157 Normal [facility] HUMERUS 2V AP/LAT LEFTon Protein mass conc Performed at [facility] APPROVED BY: Mya Morales MD EXAM TITLE: HUMERUS 2V AP/LAT LEFT DATE: 01/03/2018 11:29 INDICATION: Left arm pain secondary to a fall COMPARISON: None. FINDINGS: There is no fracture or dislocation. Joint spaces are maintained and soft tissues are normal. IMPRESSION: Within normal limits Normal [facility] Encounters Encounter Date Encounter Type Care Provider Facility Start: 04-13-2022 End: 04-13-2022 [facility]: [facility]-2019 Patient encounter procedure Darya [facility] Work Phone: Start: 06-14-2019 Patient encounter procedure Darya Curry [facility] Work Phone: Start: 05-30-2019 Patient encounter procedure Darya Memberg [facility] Work Phone: Start: 08-16-2018 Patient encounter procedure Darya Rodrigeuzg [facility] Work Phone: Start: 07-10-2018 Patient encounter procedure Darya Memberg [facility] Work Phone: Start: 03-23-2018 Patient encounter procedure Darya Memberg [facility] Work Phone: Start: 01-03-2018 End: 01-03-2018 Emergency department patient visit DARYA CURRY [facility] Start: 11-09-2017 End: 11-09-2017 Patient encounter Bunny Angel Facility:[facility] Start: 09-08-2017 Patient encounter procedure Darya Memberg [facility] Work Phone: Start: 08-29-2017 Patient encounter procedure Daryacatherine Rodriguezg [facility] Work Phone: Immunizations Immunization Date Immunization Notes Care Provider Jaimee morgan 03-23-2018 influenza, live, intranasal, quadrivalent; Translations: [FluMist Quadrivalent Nasal Suspension] [facility] 04-28-2017 meningococcal polysaccharide (groups A, C, Y and W-135) diphtheria toxoid conjugate vaccine (MCV4P); Translations: [Menactra Intramuscular Injectable] [facility]: 07-26-2013 hepatitis A vaccine, pediatric/adolescent dosage, 2 dose schedule [facility]: 07-26-2013 human papilloma viru s vaccine, quadrivalent [facility] Work Phone: 09-04-2012 human papilloma viru s vaccine, quadrivalent [facility] Work Phone: 09-04-2012 varicella virus vaccine Darya [facility] Work Phone: 06-29-2012 hepatitis A vaccine, unspecified formulation [facility] Phone: 06-29-2012 human papilloma viru s vaccine, quadrivalent [facility] Work Phone: 06-29-2012 meningococcal polysaccharide (groups A, C, Y and W-135) diphtheria toxoid conjugate vaccine (MCV4P) [facility] Work Phone: 06-29-2012 tetanus toxoid, redu tapan diphtheria toxoid, and acellular pertussis vaccine, adsorbed [facility] Work Phone: 11-19-2004 diphtheria, tetanus toxoids and acellular pertussis vaccine [facility] Work Phone: 11-19-2004 measles, mumps and rubella virus vaccine Darya [facility] Work Phone: 11-19-2004 poliovirus vaccine, inactivated [facility] Work Phone: 04-07-2001 diphtheria, tetanus toxoids and acellular pertussis vaccine [facility]: 04-07-2001 haemophilus influenz ae type b vaccine, PRP-OMP conjugate [facility]: 04-07-2001 pneumococcal conjuga te vaccine, 7 valent [facility]: 01-19-2001 measles, mumps and rubella virus vaccine [facility] Work Phone: 01-19-2001 varicella virus vaccine Darya [facility] Work Phone: 2000 hepatitis B vaccine, pediatric or pediatric/adolescent dosage [facility]: 2000 diphtheria, tetanus toxoids and acellular pertussis vaccine [facility]: 2000 haemophilus influenz ae type b vaccine, PRP-OMP conjugate [facility]: 2000 hepatitis B vaccine, pediatric or pediatric/adolescent dosage [facility]: 2000 pneumococcal conjuga te vaccine, 7 valent [facility]: 2000 poliovirus vaccine, inactivated [facility]: 2000 diphtheria, tetanus toxoids and acellular pertussis vaccine [facility]: 2000 haemophilus influenz ae type b vaccine, PRP-OMP conjugate [facility]: 2000 pneumococcal conjuga te vaccine, 7 valent Darya Memberg [facility] Work Phone: 2000 poliovirus vaccine, inactivated [facility]: 2000 diphtheria, tetanus toxoids and acellular pertussis vaccine [facility]: 2000 haemophilus influenz ae type b vaccine, PRP-OMP conjugate [facility]: 2000 hepatitis B vaccine, pediatric or pediatric/adolescent dosage [facility]: 2000 pneumococcal conjuga te vaccine, 7 valent [facility]: 2000 poliovirus vaccine, inactivated [facility]: Payers Date Payer Category Payer Unknown [id number] 2017 Unknown [id number] Social History Date Type Detail Facility NEGATED: Highlighted row - - [facility] Work Phone: Functional Status Date Assessment Result Facility NEGATED: Highlighted row Functional performance Functional status health issues are not documented Disease [facility] Work Phone: Mental Status Date Assessment Result Facility NEGATED: Highlighted row Cognitive function [Interpretation] Cognitive status health issues are not documented Disease [facility] Work Phone: Summary Purpose Family History No Family History Records Found Mother Name Dates Details Family history of Seasonal a llergies(477.9, J30.2) Status:Active Father Name Dates Details Family history of High susan sterol(272.0, E78.00) Status:Active Brother Name Dates Details Family history of Seasonal a llergies(477.9, J30.2) Status:Active Mother Name Dates Details Family history of Seasonal a llergies(477.9, J30.2) Status:Active Father Name Dates Details Family history of High susan sterol(272.0, E78.00) Status:Active Brother Name Dates Details Family history of Seasonal a llergies(477.9, J30.2) Status:Active Advance Directives No Advanced Directives Records FoundNo Advanced Directives Records FoundNo Advanced Directives Records FoundNo Advanced Directives Records FoundNo Advanced Directives Records FoundNo Advanced Directives Records Found Additional Source Comments (unrecognized sect ion and content) No Status Records FoundNo Status Records FoundNo Status Records FoundNo Status Records FoundNo Status Records FoundNo Status Records Found INFORMATION SOURCE (unrecogn ized section and content) DATE CREATED AUTHOR 11/10/2017 [facility] DATE CREATED AUTHOR AUTHOR'S ORGANIZ ATION 01/29/2018 [facility] DATE CREATED AUTHOR AUTHOR'S ORGANIZ ATION 01/29/2018 [facility] DATE CREATED AUTHOR AUTHOR'S ORGANIZ ATION 06/14/2019 [facility] DATE CREATED AUTHOR AUTHOR'S ORGANIZ ATION 10/10/2020 [facility] DATE CREATED AUTHOR AUTHOR'S ORGANIZ ATION 04/14/2022 [facility] FOR RECORDS PERTAINING TO PATIENTS WHO ARE OR HAVE BEEN ENROLLED IN A CHEMICAL DEPENDENCY/SUBSTANCEABUSE PROGRAM, SOME INFORMATION MAY BE OMITTED. This clinical summary was aggregated from multiple sources. Caution should be exercised in using it in the provision of clinical care. This summary normalizes information from multiple sources, and as a consequence, information in this document may materially change the coding, format and clinical context of patient data. In addition, data may be omitted in some cases. CLINICAL DECISIONS SHOULD BE BASED ON THE PRIMARY CLINICAL RECORDS. [employer] provides no warranty or guarantee of the accuracy or completeness of information in this document.
[2025-03-18 07:32] LABS: D-Dimer Quantitative (DVT/PE) 0.58 FEU/ug/m (0.27-0.49)
--- NOTE | 2025-03-18 07:32 | CT_ITS ---
PROCEDURE: CTA CHEST W/WO CONTRAST 03/18/2025 REASON FOR EXAM: PE TECHNIQUE: Procedure Code: [id number] Modality: CT Procedure: CTA CHEST W/WO CONTRAST Multiplanar Sagittal and Coronal images were obtained. 3D post processing was performed CONTRAST: Isovue 370 VOLUME: 100 mL One or more dose reduction techniques were used (e.g., Automated exposure control, adjustment of the mA and/or kV according to patient size, use of iterative reconstruction technique). RADIATION DOSE SUMMARY: CTDlvol: 5.5 mGy DLP: 204.07 mGycm COMPARISON: Prior chest radiograph dated March 18, 2025. FINDINGS: Hardware: None Lymph nodes: Unremarkable Heart: The heart is nonenlarged. Thoracic Aorta: No thoracic aortic aneurysm or dissection. Pulmonary Vessels: Pulmonary vessels are well opacified. No intraluminal filling defect is seen. Unremarkable Lungs and Airways: Tiny right pleural effusion with the right basilar atelectasis and/or early infiltrate. Pleura: Tiny right pleural effusion. Upper Abdomen: Visualized portions of the upper abdominal viscera are unremarkable. Bones: Unremarkable CT/CTA Chest W/WO Contrast IMPRESSION: Tiny right pleural effusion with the right basilar atelectasis and/or early inf iltrate. No evidence of pulmonary embolism. Reading Location: [place] [id number]
[2025-03-18] MEDS: 0.9% Normal Saline (1000mL) 1,000 ML 999 ML IV (07:39)
[2025-03-18 07:48] LABS: Anion Gap 10 (5-15); BUN 9 mg/dL (4-19); BUN/Creat Ratio 7.5 RATIO (10-20); Calcium,Total 9.0 mg/dL (7.6-11.0); Carbon Dioxide 26.2 mmol/L (21.0-32.0); Chloride 103 mmol/L (98-108); Estimated Creatinine Clearance 94.10 ml/min (50-250); Glucose 104 mg/dL (70-99); Potassium 4.1 mmol/L (3.3-5.1); Troponin T High Sensitivity 12 ng/L (<=22)
[2025-03-18 07:56] VITALS: BP 113/59; PULSE 92; RESP 14; O2SAT 100
[2025-03-18 09:04] VITALS: BP 118/76; PULSE 78; RESP 16; O2SAT 100
[2025-03-18 09:41] LABS: Troponin T High Sens 2 HR 9 ng/L (<=22)
[2025-03-18 09:58] VITALS: BP 111/47; BP 114/47; PULSE 72; PULSE 89; RESP 18; TEMP 36.6; TEMP 37; O2SAT 100
== END 2025-03-18 10:07 | disposition home or self-care (01) ==
PROVIDERS: Emergency Provider Surgery; Visit Provider Surgery
DX: R07.9 Chest pain, unspecified (principal); F17.200 Nicotine dependence, unspecified, uncomplicated; J90 Pleural effusion, not elsewhere classified
CPT/HCPCS: 71046; 71275; 80048; 84484; 85025; 85379; 93005; 96360; 99284; Q9967; A4216